=== PATIENT | female | born 1985 | race Caucasian/White ===

== ENCOUNTER 2017-08-23 12:19 | Emergency (ER) | payer SELFPAY, OTHER ==
[2017-08-23] MEDS ORDERED: Morphine 10 MG/ML VIAL ONE (12:43)
[2017-08-23] MEDS ORDERED: Diazepam 10 MG/2 ML SYRINGE IM SCH (13:00)
== END 2017-08-23 13:50 | disposition home or self-care (01) ==
LOC: ERS 12:19
DX: M54.5 Low back pain (principal); E66.9 Obesity, unspecified; Z87.891 Personal history of nicotine dependence
CPT/HCPCS: 96372; J2270; J3360

== ENCOUNTER 2021-07-08 19:11 | Emergency (ER) | payer OTHER, SELFPAY ==
[~2021-07-08 19:11] MED LIST: Iopamidol 370 76% 100 ML VIAL ONE
[2021-07-08] MEDS ORDERED: Morphine 4 MG/ML VIAL ONE (19:26)
[2021-07-08] MEDS ORDERED: Ondansetron PF 4 MG/2 ML Vial ONE (19:26)
[2021-07-08 19:39] LABS: #Eosinphils 0.1 thou/uL (0.0-0.7); #Lymphocytes 3.2 thou/uL (1.20-3.40); #Monocytes 0.7 thou/uL (0.11-0.59); #Neutrophils 9.6 thou/uL (1.40-6.50); %Basophils 0.2 % (0.0-1.0); %Lymphocytes 23.7 % (21.0-51.0); %Monocytes 4.8 % (0.0-10.0); %Neutrophils 70.3 % (42.0-75.0); Mean Corpuscular Hemoglobin 30.5 pg (27.0-31.0); Mean Corpuscular Volume 87.3 fL (78.0-98.0); Mean Platelet Volume 7.5 fL (7.4-10.4); Platelet Count 300 thou/uL (130-400); Red Blood Cell (RBC) Count 4.59 mill/uL (4.20-5.40); White Blood Cell (WBC) Count 13.7 thou/uL (4.8-10.8)
[2021-07-08] MEDS ORDERED: Boostrix 0.5 ML (Tdap) VIAL ONE (19:58)
[2021-07-08 20:01] LABS: ALT (SGPT) 20 U/L (8-55); AST (SGOT) 29 U/L (5-34); Albumin 3.6 g/dL (3.5-5.0); Alkaline Phosphatase 92 U/L (40-110); Anion Gap 13 mmol/L (10-20); BUN (Urea Nitrogen) 9 mg/dL (7.0-18.7); Bilirubin, Total 0.6 mg/dL (0.2-1.2); Calc. Creatinine Clearance 0 mL/min (70-130); Calcium 8.7 mg/dL (7.8-10.44); Carbon Dioxide 24 mmol/L (22-29); Globulin 4.1 g/dL (2.4-3.5); Glucose 90 mg/dL (70-105); Potassium 3.9 mmol/L (3.5-5.1); Protein, Total 7.7 g/dL (6.0-8.3)
[2021-07-08 20:04] LABS: Chloride 105 mmol/L (98-107); Sodium 138 mmol/L (136-145)
[2021-07-08] MEDS ORDERED: ceFAZolin 2 GM/Dextrose 50 ML 2 GM in Premix Bag 1 BAG IVPB SCH (20:15)
[2021-07-08] MEDS ORDERED: Ketorolac Tromethamine 30 MG/ML VIAL ONE (22:49)
== END 2021-07-08 23:28 | disposition home or self-care (01) ==
LOC: ERS 19:11
DX: S82.112A Displaced fracture of left tibial spine, initial encounter for closed fracture (principal); S60.311A Abrasion of right thumb, initial encounter; S40.211A Abrasion of right shoulder, initial encounter; V43.52XA Car driver injured in collision with other type car in traffic accident, initial encounter; W22.10XA Striking against or struck by unspecified automobile airbag, initial encounter; Y92.411 Interstate highway as the place of occurrence of the external cause; Z23 Encounter for immunization
CPT/HCPCS: 70450; 71260; 72125; 74177; 80053; 85025; 90471; 90715; 96374; 96375; G0390; J0690; J1885; J2270; J2405; Q9967